=== PATIENT | male | born 1960 | race Caucasian/White ===

== ENCOUNTER → 2018-08-01 13:34 | Outpatient (CLI) | payer BC, SELFPAY ==
--- NOTE | 2018-08-01 13:41 | CT_ITS ---
EXAM: CT LUNG LOW DOSE WO CONTRAST TECHNIQUE: The exam was performed on a GE Light Speed [address] scanner using 2.9 mGy CTDI. A low dose helical CT CHEST was performed on a multi-detector scanner. All CT scans at this facility use one or more dose reduction techniques, viz.: automated exposure control, ma/kV adjustment per patient size (including targeted exams where dose is matched to indication, i.e. head) or iterative reconstruction technique. The LDCT was performed in a facility that meets the criteria for the screening program. Data regarding this exam was submitted to ACR which is an approved registry. The order for this exam indicates that it came as a result of a lung cancer screening counseling shard decision-making visit that included all the elements required of such a visit including smoking cessation. The radiologist interpreting this exam meets the [facility] criteria for the LDCT lung cancer screening program. The exam is reported using the Lung-RADS classification scale and reported to the ACR registry. NOTE: This study was performed for the specific purposes of lung cancer screening and is not an alternative to diagnostic chest CT. RADIATION DOSE: CTDI vol(CT dose Index-volume) = 2.9mGy DLP (Dose Length Product) = 115.55 mGy-cm COMPARISON: None HISTORY: 1 pack per day for 40 years. = 40 pack-year history Quit smoking 2 weeks ago. Asymptomatic showing no signs or symptoms of lung cancer FINDINGS: Base of Neck: Incidental note 2.7 cm right thyroid nodule with rim of dense calcification. Also follow-up thyroid ultrasound recommended LUNGS No significant lung nodules.. No suspicious mass or findings. No significant adenopathy Benign 5 mm at calcified granuloma at far medial right lung base.-This reflects Benign nodules(Category1 feature). There is also 4 mm small linear area of most likely scarring at the periphery of the left lung apex anteriorly. Would characterize as a small likely benign area. Indeterminate/Non-actionable Nodule(Category2 feature): . LUNG PARENCHYMA . Minimal r emphysematous changes No significant mediastinal mass or adenopathy. Aorta & Great vessels satisfactory caliber. No hilar mass or adenopathy. No pleural lesion. No pleural effusion. Upper abdomen: Limited images reveal. No significant appearing findings. Adrenals satisfactory. Mild diffuse fatty Changes liver. . IMPRESSION: 1.... No suspicious lung nodules or masses .. Minor emphysematous changes Follow-up screening CT chest One Year recommended . Lung RADS Category: 2. Indeterminate most likely benign features:.. . Small 4 mm nodular density anterior aspect left lung apex most likely area of scarring. . Small calcified granuloma medial right lung base. 2.... .*Incidental 2.7 cm right thyroid nodule with rim of dense calcification.. Follow-up thyroid ultrasound warranted RECOMMENDATIONS: 12 monthd LDCT follow-up Also suggest follow-up & ultrasound for the prominent right thyroid nodule with calcified rim..
== END ==
PROVIDERS: PCP Family Medicine; Visit Provider Family Medicine
DX: Z12.2 Encounter for screening for malignant neoplasm of respiratory organs (principal); Z87.891 Personal history of nicotine dependence

== ENCOUNTER → 2018-08-19 15:33 | Outpatient (CLI) | payer BC, SELFPAY ==
--- NOTE | 2018-08-19 16:05 | US_ITS ---
US thyroid HISTORY: ITS.REASON: THYROID NODULE ORDERING PHYSICIAN: Lane Foley MD PATIENT AGE: 58 years Comparison: None FINDINGS: The right lobe of the thyroid gland measures 5.4 x 2.9 x 2.8 cm. There are 4 nodules on the right. Nodule A: 6 x 5 mm slightly hypoechoic nodule upper pole. Nodule B: 9 x 7 mm well-circumscribed hypoechoic nodule upper pole Nodule C: 16 x 16 mm hypoechoic nodule upper pole posteriorly well-defined. Nodule D: Solid-appearing partially calcified 3 cm nodule mid pole. Left lobe measures 4.6 x 1.6 x 2.1 cm. 2.7 x 1.9 cm solid nodule lower pole with heterogeneous echogenicity IMPRESSION: 1. Enlarged thyroid gland on both sides. 2. Bilateral thyroid nodules with a solid 3 cm nodule in the mid polar region on the right and 2.7 cm solid nodule in the lower pole on the left. Fine-needle aspiration could be performed if clinically desired
== END ==
PROVIDERS: PCP Family Medicine; Visit Provider Family Medicine
DX: E04.1 Nontoxic single thyroid nodule (principal)
CPT/HCPCS: 76536

== ENCOUNTER → 2018-09-23 12:11 | Outpatient (CLI) | payer BC, SELFPAY ==
--- NOTE | 2018-09-23 12:18 | US_ITS ---
FNA w guidance Ultrasound thyroid HISTORY: Dominant right thyroid nodule ITS.REASON: 2 LARGE NODULES BILATERALLY ORDERING PHYSICIAN: Lane Foley MD PATIENT AGE: 58 years COMPARISON: 08/19/2018 Prebiopsy ultrasound: Images performed to confirm the location of the nodule and to determine best biopsy approach. Timeout procedure performed. TECHNIQUE: Following obtaining informed consent, using aseptic technique and local anesthesia with buffered lidocaine, fine-needle aspiration was performed of the nodule of interest using sonographic guidance. 3 passes were made into the nodule with a 25-gauge needle. Specimen was given to cytology. The patient tolerated the procedure well without evidence of immediate complications and left the ultrasound suite in stable condition. CYTOLOGY:Negative for malignancy, consistent with benign follicular nodule IMPRESSION: Status post ultrasound-guided fine needle aspiration of the dominant nodule right lobe of the thyroid gland showing benign findings. Consider 6 month ultrasound follow-up to confirm stability of the multiple nodules
--- NOTE | 2018-09-23 12:39 | US_ITS ---
FNA w guidance HISTORY: Left thyroid nodule ITS.REASON: 2 LARGE NODULES BILATERALLY ORDERING PHYSICIAN: Lane Foley MD PATIENT AGE: 58 years COMPARISON: 08/19/2018 INDICATION: 2.7 cm solid nodule in the lower pole on the left. Prebiopsy ultrasound performed to confirm the nodule and to sergo the area of biopsy. Timeout procedure performed. TECHNIQUE: Following obtaining informed consent, using aseptic technique and local anesthesia with buffered lidocaine, fine-needle aspiration was performed of the nodule of interest using sonographic guidance. 3 passes were made into the nodule with a 25-gauge needle. Specimen was given to cytology. The patient tolerated the procedure well without evidence of immediate complications and left the ultrasound suite in stable condition. CYTOLOGY:Negative for malignancy, compatible with colloid cyst IMPRESSION: FNA of left thyroid nodule shows benign findings. Recommend 6 month ultrasound follow-up to confirm stability
== END ==
PROVIDERS: PCP Family Medicine; Visit Provider Family Medicine
DX: E04.2 Nontoxic multinodular goiter (principal)
CPT/HCPCS: 10005

== ENCOUNTER → 2022-09-17 14:10 | Outpatient (CLI) | payer OTHER, SELFPAY ==
--- NOTE | 2022-09-17 14:17 | US_ITS ---
FINAL REPORT CLINICAL HISTORY: THYROID NODULE COMPARISON: 08/19/2018 FINDINGS: THYROID ULTRASOUND Sonographic images of the thyroid was obtained. The right lobe of the thyroid measures 6.3 x 3.9 x 3.2 cm. 1. 8 x 7 x 4 mm nodule in the right lobe was 6 x 5 x 3 mm. It is solid hypoechoic, TI-RADS category 4. 2. 8 x 7 4 mm nodule in the right lobe was 9 x 7 x 6 mm. It is solid and hypoechoic, stable. TI-RADS category 4. 3. 21 x 20 x 17 mm in the right lobe was 22 x 16 x 16 mm. It is solid and hypoechoic, not significantly changed. TI-RADS category 4. 4. 34 x 32 x 26 mm in the right lobe was 31 x 24 x 30 mm. It is solid and hypoechoic with peripheral calcifications. TI-RADS category 4. The left lobe of the thyroid measures 4.1 x 2.0 x 1.9 cm. 1. Dominant nodule in the left lobe measures 23 x 23 x 12 mm and was 27 x 19 x 15 mm. It is cystic and solid, isoechoic with calcifications. TI-RADS category 4. The isthmus measures 6 mm. IMPRESSION: Bilateral nodules are not significantly changed. With patient's given history of prior biopsy, additional follow-up ultrasound may be helpful to evaluate for stability in 12 months. Reviewed, Interpreted and Dictated by Serafin Rubin III, MD Transcribed by Radha Givens Authenticated and [facility]
== END ==
PROVIDERS: PCP Family Medicine; Visit Provider Physician Assistant
DX: E04.1 Nontoxic single thyroid nodule (principal)
CPT/HCPCS: 76536

== ENCOUNTER → 2023-01-30 08:56 | Outpatient (CLI) | payer OTHER, SELFPAY ==
--- NOTE | 2023-01-30 08:59 | CT_ITS ---
FINAL REPORT TECHNIQUE: Thin section axial images were obtained through the lungs using a low-dose technique per lung cancer screening protocol. Reconstruction images were obtained using the axial data. Exam was performed using dose reduction technique. CLINICAL HISTORY: SMOKING HISTORY 1 ppd for 25 years, quit 3 years ago faxed prior report COMPARISON: 08/01/2018 FINDINGS: CTDLvol: 2.9 DLP: 108.64 Former smoker 25 pack year history Lungs: There is a stable 5 mm left upper lobe nodule best seen in image #20. No new infiltrates or nodules are noted in the lung alexander. Lymph nodes: No thoracic lymphadenopathy. Mediastinum: Heart size is normal. There is a partially calcified right thyroid nodule which extends substernal, and is stable since the prior CT. Pleura/pericardium: No pleural or pericardial effusion. Other: No acute abnormality in the upper abdomen. IMPRESSION: Stable 5 mm left upper node nodule when compared to prior CT of 2019. No new nodules or infiltrates are seen. Lung RADS: 1 Recommendation: 12-month LDCT Reviewed, Interpreted and Dictated by Malena Humphreys MD Transcribed by Crystal Araujo Authenticated and [facility]
== END ==
PROVIDERS: PCP Family Medicine; Visit Provider Physician Assistant
DX: Z87.891 Personal history of nicotine dependence (principal); Z12.2 Encounter for screening for malignant neoplasm of respiratory organs
CPT/HCPCS: 71271

== ENCOUNTER → 2023-02-18 07:46 | Outpatient (CLI) | payer OTHER, SELFPAY ==
--- NOTE | 2023-02-18 07:47 | US_ITS ---
FINAL REPORT CLINICAL HISTORY: left lobe thyroid FNA -- Alber VALADEZ FINDINGS: Ultrasound guided thyroid biopsy. HISTORY: Left thyroid nodule. Attending radiologist: Dr. Rubin Physician inside sales assistant: Alber Phan PA-C PROCEDURE: After informed consent was obtained and a time-out was performed, the patient was prepped and draped in usual sterile fashion over the left neck. Utilizing local anesthesia and sterile technique with a 25-gauge needle, access to lesion was obtained. Two passes were made. The patient received no conscious sedation. The patient tolerated procedure well and left the department in good condition. IMPRESSION: Status post ultrasound guided biopsy of thyroid without immediate complication. Films reviewed , interpreted and dictated by Dr. Rubin Transcribed by Alber Phan PA-C. Reviewed, Interpreted and Dictated by Serafin Rubin III, MD Transcribed by ALLYSON Vines Authenticated and [facility]
== END ==
LOC: RAD 07:47
PROVIDERS: PCP Family Medicine; Visit Provider Nurse Practitioner
DX: E04.1 Nontoxic single thyroid nodule (principal)
CPT/HCPCS: 10005; 76536

== ENCOUNTER → 2023-02-20 11:50 | Outpatient (CLI) | payer OTHER, SELFPAY | PROVIDERS: PCP Family Medicine; Visit Provider Nurse Practitioner | DX: E04.1 Nontoxic single thyroid nodule (principal) | CPT/HCPCS: 36415; 84439; 84443 ==

== ENCOUNTER 2023-08-23 07:42 | Outpatient (CLI) | payer MEDICARE, SELFPAY ==
--- NOTE | 2023-08-23 07:42 | US_ITS ---
FINAL REPORT CLINICAL HISTORY: left thyroid FNA -- Sohail VALADEZ FINDINGS: ULTRASOUND GUIDED LEFT THYROID BIOPSY HISTORY: Left thyroid nodule. ATTENDING PHYSICIAN: Dr. Scottie MD PHYSICIAN SHOE PLANNER: Lauren Koehler PA-C PROCEDURE: Informed consent was obtained from the patient. A time out procedure was performed. Ultrasound was utilized to localize the dominant left thyroid nodule. Patient was prepped and draped in the usual sterile fashion over the left neck. 1% Lidocaine was utilized for local anesthesia. Four 25-gauge FNA passes were made of the left thyroid nodule using ultrasound guidance. Tissue samples were divided between cytology and Thyroseq tubes and sent to the lab for analysis. Patient tolerated the procedure well and left the department in good condition. IMPRESSION: Technically successful ultrasound-guided FNA of a dominant left thyroid nodule, as described. Reviewed, Interpreted and Dictated by Serafin Rubin III, MD Transcribed by Lauren Koehler PA-C Authenticated and [facility]
== END 2023-08-23 23:59 ==
LOC: RAD 07:42
PROVIDERS: PCP Family Medicine; Visit Provider Nurse Practitioner
DX: E04.1 Nontoxic single thyroid nodule (principal); R89.9 Unspecified abnormal finding in specimens from other organs, systems and tissues
CPT/HCPCS: 10005; 76536

== ENCOUNTER 2023-11-28 12:33 | Outpatient (CLI) | payer MEDICARE, SELFPAY ==
--- NOTE | 2023-11-28 12:33 | US_ITS ---
FINAL REPORT CLINICAL HISTORY: thyroid nodule COMPARISON: 09/17/2022 FINDINGS: Sonographic images of the thyroid gland were obtained. The right thyroid lobe measures 6.3 cm. in length. The left thyroid lobe measures 4.3 cm. in length. The thyroid isthmus measures 0.4 cm. There are multiple thyroid nodules present bilaterally, and a generally inhomogeneous thyroid gland. The largest nodule on the left measures 28 x 20 x 14 mm in size, was previously 28 x 19 x 23 mm in size, not significantly changed in size. This is mostly solid and isoechoic, with macrocalcifications, a TI-RADS category 4 nodule. The largest thyroid nodule on the right side measures 32 x 31 x 25 mm in size, stable when compared to the prior exam. This nodule is solid, hypoechoic, with peripheral macrocalcifications. This is a TI-RADS category 4 nodule. IMPRESSION: Multiple thyroid nodules are present bilaterally, essentially stable since the prior exam of 09/17/2022. Recommend 12-month follow-up thyroid ultrasound to follow. Reviewed, Interpreted and Dictated by Serafin Rubin III, MD Transcribed by Crystal Araujo Authenticated and [facility]
== END 2023-11-28 23:59 | disposition home or self-care (01) ==
LOC: RAD 12:33
PROVIDERS: PCP Family Medicine; Visit Provider Nurse Practitioner
DX: R89.9 Unspecified abnormal finding in specimens from other organs, systems and tissues (principal); E04.1 Nontoxic single thyroid nodule
CPT/HCPCS: 76536

== ENCOUNTER 2024-01-01 14:16 | Outpatient (CLI) | payer MEDICARE, SELFPAY ==
--- NOTE | 2024-01-01 14:23 | CT_ITS ---
FINAL REPORT TECHNIQUE: Thin section axial CT images with coronal and sagittal reformats were performed through the neck. This study was performed with techniques to keep radiation doses as low as reasonably achievable (ALARA). Individualized dose reduction techniques using automated exposure control or adjustment of mA and/or kV according to the patient''s size were employed. CLINICAL HISTORY: left lymphadenopathy FINDINGS: The salivary glands are unremarkable. There are multiple small lymph nodes in the upper jugular chains, not enlarged by imaging criteria. Largest on the right measures 14 x 10 mm. The larynx is normal. There is thyroid megaly. There is a dominant mass in the right lobe with calcified rim measuring up to 33 mm. Please refer to recent thyroid ultrasound for further characterization. There is a small bony defect involving the left sphenoid bone well seen on image 4 measuring up to 8 mm. This is located along the anterior tip of the left temporal lobe. IMPRESSION: Few borderline enlarged lymph nodes, probably reactive in the upper neck. Small bony defect in the left sphenoid bone as above. Recommend correlation with MRI with and without contrast to further assess for underlying bone lesion or associated dural lesion. Right thyroid nodules. Reviewed, Interpreted and Dictated by Jurgen Park MD Transcribed by Rivka Mendez Authenticated and [facility]
== END 2024-01-01 23:59 | disposition home or self-care (01) ==
PROVIDERS: PCP Family Medicine; Visit Provider Nurse Practitioner
DX: R59.0 Localized enlarged lymph nodes (principal)
CPT/HCPCS: 70490

== ENCOUNTER 2024-03-02 06:34 | Outpatient (CLI) | payer MEDICARE, SELFPAY ==
[2024-03-02 07:23] LABS: Blood Urea Nitrogen 15 mg/dl (9-20); Estimated Glomerular Filt Rate 85 ml/min (>60); GFR (African American) 102 ML/MIN (>60)
--- NOTE | 2024-03-02 07:25 | MR_ITS ---
FINAL REPORT CLINICAL HISTORY: headaches, L sphenoid bone bony defect COMPARISON: CT of the neck 01/01/2024 FINDINGS: Multiplanar MR imaging of the brain was performed without and with contrast. On axial imaging, there is a 7 mm in diameter signal abnormality correlating to the calvarial defect seen on the CT of the neck from December 2023, in the anterior left middle cranial fossa, which demonstrates increased signal on T2 weighted images but does not enhance after contrast administration. This defect does not demonstrate CSF signal, and is extra-axial. No associated temporal lobe mass or enhancement is noted. The ventricular size is within normal limits. There is no evidence of shift of the midline structures. The posterior fossa and brainstem have an unremarkable appearance. No area of abnormal restricted diffusion is identified. No abnormal contrast enhancement is seen. Normal major vessel vascular flow voids are noted. A small polyp is present in the anterior right maxillary sinus. IMPRESSION: 7 mm signal abnormality correlating to the calvarial defect seen on the prior CT of December 2023. This does not demonstrate CSF signal and is extra-axial, does not enhance after contrast administration, and may simply represent a developmental tiny calvarial defect. Recommend 6-month follow-up MRI, with pre and postcontrast enhanced imaging, and thin sections through the middle cranial fossa. Reviewed, Interpreted and Dictated by Flaco Hurtado MD Transcribed by Crystal Araujo Authenticated and [facility]
[2024-03-02] MEDS: GADOTERIDOL INJ 20ML SYRINGE 20 ML IV (08:09)
[2024-03-02] MEDS: SODIUM CHLORIDE 0.9% 10ML SYR (RAD ONLY) 10 ML IV (08:09)
[2024-03-02] MEDS: GADOTERIDOL INJ 10ML SYRINGE 4 ML IV (08:10)
== END 2024-03-02 23:59 | disposition home or self-care (01) ==
PROVIDERS: PCP Physician Assistant; Visit Provider Student in an Organized Health Care Education/Training Program
DX: D49.2 Neoplasm of unspecified behavior of bone, soft tissue, and skin (principal); R51.9 Headache, unspecified
CPT/HCPCS: 36415; 70553; 82565; 84520; A9576

== ENCOUNTER 2024-09-29 06:19 | Day surgery (SDC) | payer BC, SELFPAY ==
[2024-09-28 10:13] VITALS: BMI 33.2
[2024-09-29 06:36] VITALS: BP 153/82; PULSE 60; RESP 16; TEMP 36.2; O2SAT 99
--- NOTE | 2024-09-29 07:04 | P.HP_ITS ---
HPI HPI HPI: This is a 64-year-old gentleman who presents for colonoscopy. He has a history of colon polyps and states that his most recent colonoscopy was a few years back . He reports benign polyps but is uncertain regarding location. [facility] Disclaimer: The information contained in this section may have been updated after the patient was seen, as this information can be updated by other users. Medical History (Updated 09/29/24 @ 07:06 by Humberto Chau MD) Neoplasm of temporal bone Lymphadenopathy of left cervical region Abnormal thyroid biopsy Thyroid Nodule Surgical History (Updated 09/28/24 @ 10:04 by Maria Elena Black RN) No significant past surgical history Family History (Updated 09/28/24 @ 10:04 by Maria Elena Black RN) No significant family history Social History (Updated 09/28/24 @ 10:05 by Maria Elena Black RN) Smoking Status: Never smoker alcohol intake: current alcohol intake frequency: a few times a month current occupational status: retired Travel in the last 8 weeks: None caffeine: No Have you lived/traveled outside [place] in past 30 days?: No Contact w/someone who lives/traveled outside US past 30 days?: No Exposure to someone with infectious disease in past 14 days?: No Do you have a fever (greater than 100.4 F or 38 C)?: No Have you tested positive for COVID-19: No Exposed to someone with COVID-19 in past 14 days?: No Do you have a sore throat?: No Do you have a cough?: No Do you have any weakness?: No Are you experiencing any nausea/vomitting?: No Do you have any diarrhea?: No Are you experiencing any unusual bleeding?: No Do you have any muscle aches/pain?: No Do you have any abdominal pain?: No Are you experiencing loss of taste or smell?: No Other Medical History Have you received the Pneumonia Vaccine: No Review of Systems Review of Systems Review of systems:: pertinent systems reviewed and negative unless documented below Meds Home Medications and Allergies Home Medications ?Medication ?Instructions ?Recorded ?Confirmed ?Type latanoprost 0.005 % eye drops 1 drp Eye-Both DAILY 12/03/23 09/28/24 History timolol maleate 0.25 % eye drops 1 drp Eye-Both DAILY 12/03/23 09/28/24 History sod picosulf 10 mg-magnes 3.5 175 ml PO DAILY 2 doses #350 mL 08/05/24 09/28/24 Rx gram-citric 12 gram/175 mL oral solution (Clenpiq) New Prescriptions to Start Prescriptions: Allergies Allergy/AdvReac Type Severity Reaction Status Date / Time No Known Allergies Allergy Verified 09/28/24 10:01 Exam Data for Last 24 hours Vital signs and Labs for Last 24 Hours: Temp Pulse Resp BP Pulse Ox O2 Del Method 97.2 F L 60 16 153/82 H 99 Room Air 09/29/24 06:36 09/29/24 06:36 09/29/24 06:36 09/29/24 06:36 09/29/24 06:36 09/29/24 06:36 I & O for Last 24 hours: Intake & Output 09/26/24 09/27/24 09/28/24 09/29/24 11:59 11:59 11:59 11:59 Weight 244 lb 15.995 oz Constitutional Constitutional: no acute distress *Routine HEENT Exam Head: Present normocephalic Eye: Present EOMI ENT: Present mucous membranes moist *Routine Respiratory Exam Respiratory: Absent respiratory distress *Routine Cardiovascular Exam Cardiovascular: Absent tachycardia *Routine Abdominal Exam Abdominal: Present soft *Routine Rectal Exam Rectal:: deferred *Routine Genitalia Exam Genitalia:: deferred *Routine Neurological Exam Neurological: Present alert Routine Psychiatric Exam Psychiatric: Present normal affect Assessment and Plan *Assessment and plan (1) History of colon polyps: Status: Acute Category: Medical Code(s): Z86.0100 - Personal history of colon polyps, unspecified Plan: Colonoscopy today I have discussed the risks and benefits including, but not limited to: Bleeding Infection Damage to surrounding tissue Inherent risks of sedation The patient agrees to proceed.
--- NOTE | 2024-09-29 07:06 | EXP.ANES.CKL ---
[facility] Disclaimer: The information contained in this section may have been updated after the patient was seen, as this information can be updated by other users. Medical History Neoplasm of temporal bone Lymphadenopathy of left cervical region Abnormal thyroid biopsy Thyroid Nodule Surgical History No significant past surgical history Family History Other No significant family history Social History Smoking Status: Never smoker alcohol intake: current alcohol intake frequency: a few times a month substance use type: denies use current occupational status: retired Travel in the last 8 weeks: None caffeine: No [facility] Anesthesia Checklist Patient Identification Patient Identification: Arm Band and Verbal (Name & ) Structural Data Admitted From: Home Planned Operative Procedure/s: colonscopy Consent for Planned Operative Procedure(s) Verified: Yes Verified Documents: Surgical Consent and History and Physical NPO Status Verified Time NPO: 00:00 Airway Assessment Mallampati Score:: Class II Neurological Assessment Level of Consciousness: Awake Anesthesia Plan Anesthesia Risk discussed: Yes Anesthesia Plan: Verified ASA Class: III Anesthesia Type: MAC
--- NOTE | 2024-09-29 07:07 | HMH.SCOPE ---
Procedure: Date: 09/29/24 Patient Date of :: 1960 Procedure Performed:: Colonoscopy Indications:: History of colon polyps Performing Provider:: Humberto Chau MD Referring Provider:: . Sedation:: Monitored anesthesia care Procedure:: After informed consent was obtained the patient was taken to the endoscopy suite. Sedation ensued after the patient was transferred to the left lateral decubitus position. Pulse, blood pressure, and oxygen saturation were monitored throughout the procedure. Digital rectal exam revealed no significant abnormality. The colonoscope was placed in position. The entire colon was evaluated. The colonoscope was carefully removed and the patient was transferred to recovery in stable condition. Please see findings and specimens below for detail. Findings:: Bowel preparation moderate Large-volume irrigation/suctioning somewhat improved visualization Moderate tortuosity Significant spasticity/lack of relaxation Hemorrhoidal cushions Tattoo site (around 65 cm) appeared normal Specimens:: None Recommendations:: Repeat colonoscopy in approximately 3 years secondary to history of significant polyps, moderate bowel preparation, and spasticity/lack of relaxation. Complications:: No immediate Estimated blood obtained (mL): 0 Colonoscopy Component Colonoscopy Component Was a colonoscopy performed during today's procedure?: Yes Recommended follow up colonoscopy of at least 10 years?: No If no, follow up colonoscopy recommended in ___ years?: (See above) Reason for not recommending >/= 10 yr follow-up interval?: (See above)
[2024-09-29 07:16] VITALS: O2SAT 97
[2024-09-29 07:50] VITALS: BP 127/77; PULSE 66; RESP 16; TEMP 36.9; O2SAT 98
[2024-09-29 08:00] VITALS: BP 147/82; PULSE 64; RESP 16; O2SAT 98
[2024-09-29 08:10] VITALS: BP 155/90; PULSE 60; RESP 16; O2SAT 98
[2024-09-29 08:20] VITALS: BP 151/77; PULSE 60; RESP 16; O2SAT 98
== END 2024-09-29 08:20 | disposition home or self-care (01) ==
PROVIDERS: PCP Family Medicine; Visit Provider Surgery
PROC: 0DJD8ZZ Inspection of Lower Intestinal Tract, Via Natural or Artificial Opening Endoscopic (ICD-10-PCS; CPT 45378; principal; 2024-09-29 07:30)
DX: K64.9 Unspecified hemorrhoids (principal); Z86.0100 Personal history of colon polyps, unspecified
CPT/HCPCS: 45378